=== PATIENT | female | born 1960 | race Caucasian/White ===

== ENCOUNTER 2018-04-29 01:39 | Emergency (ER) | payer MEDICARE ==
[~2018-04-29] VITALS: Ht 175.3 cm; Wt 103.0 kg
[~2018-04-29 01:39] MED LIST: AMIT50TA PO; CALC-112 PO; CALC625T23 PO; CHOL100015 PO; FLUO40CA2 PO; GARL10002 PO; LACT1CAP35 PO; LANS30CA PO; LEVO50TA5 PO; METO25TA35 PO; MULT-717 PO; NAPR-685 PO; THIA100T27 PO
--- NOTE | 2018-04-29 01:59 | NUR ---
BIB [facility] FROM HOME WITH C/O CHEST TIGHTNESS WITH DRY NONPRODUCTIVE COUGH AND PAIN WITH DEEP BREATHING AND MVMT THAT STARTED AT 2300 YESTERDAY, RR-28, 98% R/A, HR-100, B/P-126/86, FSBS-85. MONITORS APPLIED, SIDERAILS UP X2, CALL LIGHT WITHIN REACH
[2018-04-29 03:15] LABS: BASOPHILS # (AUTO) 0.06 x10^3/uL (0-0.1); BASOPHILS % (AUTO) 1 % (0-1); EOSINOPHILS % (AUTO) 1 % (1-7); LYMPHOCYTES # (AUTO) 1.59 x10^3/uL (1-3.4); LYMPHOCYTES % (AUTO) 12 % (22-44); MD NO; MEAN CORPUSCULAR HEMOGLOBIN 33.6 pg (27.0-34.8); MEAN CORPUSCULAR VOLUME 98.8 fL (80-100); MEAN PLATELET VOLUME 7.9 fL (7.4-10.4); MONOCYTES # (AUTO) 0.67 x10^3/uL (0.2-0.8); MONOCYTES % (AUTO) 5 % (2-9); NEUTROPHILS # (AUTO) 10.72 x10^3/uL (1.8-6.8); NEUTROPHILS % (AUTO) 82 % (42-75); PLATELET COUNT 268 x10^3/uL (130-400); RED BLOOD COUNT 4.41 x10^6/uL (3.82-5.3); RED CELL DISTRIBUTION WIDTH 15.3 % (9.6-15.2)
[2018-04-29 03:26] LABS: ALBUMIN 3.3 g/dL (3.4-5.0); ANION GAP 9 mmol/L (5-15); CALCIUM 8.5 mg/dL (8.5-10.1); CHLORIDE 104 mmol/L (98-107); CREATININE 0.51 mg/dL (0.55-1.02)
[2018-04-29 03:30] LABS: TROPONIN I < 0.015 ng/mL (0.000-0.045)
--- NOTE | 2018-04-29 03:35 | NUR ---
PT RESTING CALMLY, STATED "I FEEL ALOT BETTER", MONITORS IN PLACE, FAMILY AT BEDSIDE, CALL LIGHT WITHIN REACH.
[2018-04-29] MEDS ORDERED: LEVOTHYROXINE PO (03:40)
[2018-04-29 04:16] VITALS: BP 114/72
== END 2018-04-29 04:20 | disposition home or self-care (01) ==
LOC: ED 04:16
DX: B34.9 Viral infection, unspecified (principal); F32.9 Major depressive disorder, single episode, unspecified; I48.91 Unspecified atrial fibrillation; E03.9 Hypothyroidism, unspecified; E78.00 Pure hypercholesterolemia, unspecified; Z90.89 Acquired absence of other organs; Z87.891 Personal history of nicotine dependence; Z90.49 Acquired absence of other specified parts of digestive tract
CPT/HCPCS: 36415; 71045; 80048; 82040; 84484; 85025; 93005; 99284